=== PATIENT | female | born 1970 | race Caucasian/White ===

== ENCOUNTER 2019-07-09 12:18 | Emergency (ER) | payer MEDICAID, OTHER ==
[~2019-07-09] VITALS: Ht 172.7 cm; Wt 81.6 kg
[2019-07-09 14:23] LABS: Basophils # (auto) 0 uL; Basophils % (auto) 0.7 % (0.0-2.0); Eosinophils # (auto) 0.1 uL; Eosinophils % (auto) 1.3 % (0.0-7.0); Hematocrit 42.2 % (36.0-46.0); Hemoglobin 14.4 g/dL (12.2-16.2); Lymphocytes # (auto) 2.1 uL; Lymphocytes % (auto) 43.8 % (10.0-50.0); Mean Corpuscular Hemoglobin 33.2 pg (28.0-32.0); Mean Corpuscular Hgb Conc. 34.1 g/dL (32.0-36.0); Mean Corpuscular Volume 97.3 fL (80.0-100.0); Monocytes # (auto) 0.4 uL; Monocytes % (auto) 8.5 % (0.0-12.0); Neutrophils # (auto) 2.2 uL; Neutrophils % (auto) 45.7 % (37.0-80.0); Nucleated Red Blood Cells % 0.1 %; Platelet Count (auto) 198 10^3/uL (140-450); Red Blood Cells 4.34 10^6/uL (4.0-5.20); Red Cell Distribution Width 14.5 % (11.8-14.3); White Blood Cell 4.7 10^3/uL (4.4-10.8)
[2019-07-09 14:43] LABS: Alanine Aminotransferase 170 U/L (13-56); Albumin 3.8 g/dL (3.4-5.0); Anion Gap 11 (5-15); Aspartate Aminotransferase 86 U/L (15-37); BUN/Creatinine Ratio 23.9; Blood Urea Nitrogen 16 mg/dL (7-18); Calcium 8.6 mg/dL (8.5-10.1); Carbon Dioxide 24 mmol/L (21-32); Chloride 107 mmol/L (98-107); GFR African American 119 mL/min; GFR Non-African American 99 mL/min; Glucose 86 mg/dL (74-106); Potassium 4.4 mmol/L (3.5-5.1); Sodium 142 mmol/L (136-145)
[2019-07-09 14:47] LABS: Salicylate < 1.7 mg/dL (2.8-20.0)
[2019-07-09 14:48] LABS: Alkaline Phosphatase 77 U/L (45-117); Bilirubin, Total 0.1 mg/dL (0.2-1.0); Total Protein 8.5 g/dL (6.4-8.2)
[2019-07-09 14:57] LABS: Acetaminophen < 2.0 ug/mL (10-30)
[2019-07-09] MEDS ORDERED: SODIUM CHLORIDE 0.9% 1,000 ML IV ONE ×2 (15:08)
[2019-07-09] MEDS ORDERED: THIAMINE 100mg/ml INJ (200mg/2ml VIAL) IV ONE (15:15)
[2019-07-09] MEDS ORDERED: ACETAMINOPHEN 325 MG TAB PO ONE (16:00)
[2019-07-09 18:00] VITALS: BP 137/79
== END 2019-07-09 18:47 | disposition home or self-care (01) ==
LOC: EDUNIT# 12:18 → EDBD 12:18 → ER 12:18
DX: E86.0 Dehydration (principal); F10.129 Alcohol abuse with intoxication, unspecified; Y90.0 Blood alcohol level of less than 20 mg/100 ml
CPT/HCPCS: 36415; 80053; 80320; 80329; 84484; 85025; 96361; 96374; 99283; J3411; J7030

== ENCOUNTER 2023-10-28 23:23 | Emergency (ER) | payer MEDICAID, OTHER ==
[~2023-10-28] VITALS: Ht 162.6 cm; Wt 63.0 kg
[2023-10-29 00:15] VITALS: BP 127/75; PULSE 110; TEMP 99
[2023-10-29 00:19] LABS: COVID19 ANTIGEN SOFIA FIA NEGATIVE (NEGATIVE)
[2023-10-29 00:20] LABS: Rapid Influenza A Negative (Negative); Rapid Influenza B Negative (Negative)
[2023-10-29] MEDS ORDERED: PRED20TA2 PO (01:08)
[2023-10-29] MEDS ORDERED: ALBUAER3 IN (01:08)
[2023-10-29] MEDS ORDERED: BENZ200C64 PO (01:08)
[2023-10-29] MEDS ORDERED: AUG875T PO (01:08)
[2023-10-29] MEDS: cefTRIAXone SOD 1,000 MG VL IM ONE (01:23)
[2023-10-29] MEDS: DexAMETHasone SOD PHOS 10MG/1ML VIAL INJ IM ONE (01:24)
[2023-10-29] MEDS: guaiFENesin-CODEINE Liq 5 ML UD PO ONE (01:24)
[2023-10-29] MEDS: IBUPROFEN 800 MG TAB PO ONE (01:24)
[2023-10-29 01:35] VITALS: RESP 16; O2SAT 92
[2023-10-29] MEDS: ALBUTEROL SULF 2.5 MG/0.5ML(0.5%) NEB SOLN NEB ONE (01:35)
[2023-10-29] MEDS: IPRATROPIUM BROM 0.5 MG/2.5ML INH SOL NEB ONE (01:35)
== END 2023-10-29 01:34 | disposition home or self-care (01) ==
LOC: ER 23:23
DX: J18.9 Pneumonia, unspecified organism (principal); Z20.822 Contact with and (suspected) exposure to COVID-19
CPT/HCPCS: 36415; 71045; 87426; 87804; 94640; 96372; 99284; J0696; J1100; J7644